=== PATIENT | male | born 1965 | race Caucasian/White ===

== ENCOUNTER 2024-06-03 03:48 | Emergency (ER) | payer OTHER, SELFPAY ==
--- NOTE | 2024-06-03 | ECG_ITS ---
Test Reason : FALL Blood Pressure : / mmHG Vent. Rate : 066 BPM Atrial Rate : 066 BPM P-R Int : 124 ms QRS Dur : 086 ms QT Int : 414 ms P-R-T Axes : 011 027 069 degrees QTc Int : 434 ms Normal sinus rhythm Normal ECG When compared with ECG of 28-SEP-2013 19:41, No significant change was found Referred By: Generic ED Physician Electronically Signed By:SHANIQUE VILLARREAL MD
--- NOTE | ~2024-06-03 | CT_ITS ---
EXAMINATION: CT HEAD WITHOUT CONTRAST CT CERVICAL SPINE WITHOUT CONTRAST CLINICAL INFORMATION: Fall. Pain. COMPARISON: None available. TECHNIQUE: Contiguous axial imaging was performed through the head and cervical spine without intravenous administration of contrast. Sagittal and coronal reformatted images also obtained. This CT examination was performed using dose optimization techniques as appropriate, variously including the following: *Automated exposure control *Adjustment of mA and/or kV according to patient size (this includes techniques or standardized protocols for targeted exams where dose is matched to indication/reason for exam; i.e. extremities or head) *Use of iterative reconstruction technique DLP: 1030 mGy-cm FINDINGS: There is mild cerebral volume loss with prominence of the lateral and the third ventricles. The cortical sulci are widened appropriately. The fourth ventricle and basal cisterns are normally outlined. There is mild bilateral periventricular and central white matter diminished attenuation. There is no acute territorial defect, hemorrhage or midline shift. The extra-axial spaces are unremarkable. Calvarium/scalp: Intact. Maxillofacial sinuses and mastoids: Clear as visualized. Cervical spine: There is mild reversal of the expected cervical spine curvature. There is diffuse pqfv-xq-rxelkbfo cervical disc degenerative change with loss of disc space, endplate change and posterior osteophytes associated with diffuse mild facet osteoarthritic hypertrophic change with multilevel daai-rg-jgzubleq spinal canal and neuroforaminal narrowing. The bone mineralization is normal. No fracture is seen. The soft tissues are unremarkable. CT/CT cervical spine wo IV con IMPRESSION: CT HEAD: 1. No acute intracranial process seen. 2. Mild cerebral volume loss with chronic small vessel ischemic changes. CT CERVICAL SPINE: 1. There is no acute fracture or dislocation. 2. There is mild reversal of the expected cervical spine curvature. 3. There is diffuse ayiu-mb-lubynlvk cervical spondylosis.
--- NOTE | ~2024-06-03 | CT_ITS ---
EXAMINATION: CT HEAD WITHOUT CONTRAST CT CERVICAL SPINE WITHOUT CONTRAST CLINICAL INFORMATION: Fall. Pain. COMPARISON: None available. TECHNIQUE: Contiguous axial imaging was performed through the head and cervical spine without intravenous administration of contrast. Sagittal and coronal reformatted images also obtained. This CT examination was performed using dose optimization techniques as appropriate, variously including the following: *Automated exposure control *Adjustment of mA and/or kV according to patient size (this includes techniques or standardized protocols for targeted exams where dose is matched to indication/reason for exam; i.e. extremities or head) *Use of iterative reconstruction technique DLP: 1030 mGy-cm FINDINGS: There is mild cerebral volume loss with prominence of the lateral and the third ventricles. The cortical sulci are widened appropriately. The fourth ventricle and basal cisterns are normally outlined. There is mild bilateral periventricular and central white matter diminished attenuation. There is no acute territorial defect, hemorrhage or midline shift. The extra-axial spaces are unremarkable. Calvarium/scalp: Intact. Maxillofacial sinuses and mastoids: Clear as visualized. Cervical spine: There is mild reversal of the expected cervical spine curvature. There is diffuse duql-vp-lccwnoxe cervical disc degenerative change with loss of disc space, endplate change and posterior osteophytes associated with diffuse mild facet osteoarthritic hypertrophic change with multilevel sylq-km-zvpwghhp spinal canal and neuroforaminal narrowing. The bone mineralization is normal. No fracture is seen. The soft tissues are unremarkable. CT/CT head/brain wo IV con IMPRESSION: CT HEAD: 1. No acute intracranial process seen. 2. Mild cerebral volume loss with chronic small vessel ischemic changes. CT CERVICAL SPINE: 1. There is no acute fracture or dislocation. 2. There is mild reversal of the expected cervical spine curvature. 3. There is diffuse gbmx-hm-gjinnlnv cervical spondylosis.
[2024-06-03 03:59] VITALS: BP 143/68; BP 146/78; PULSE 68; PULSE 75; RESP 14; TEMP 36.6; O2SAT 97; O2SAT 98; BMI 32.1
[2024-06-03 04:09] VITALS: BP 155/79; PULSE 76; RESP 16; O2SAT 97
[2024-06-03 04:24] LABS: Glucose, Whole Blood 448 mg/dL (60-115)
[2024-06-03 04:44] LABS: Hematocrit 34.3 % (42.0-52.0); Hemoglobin 12.3 g/dl (14.0-18.0); Mean Corpuscular HGB Conc 35.9 g/dl (31.0-36.0); Mean Corpuscular Hemoglobin 32.8 pg (27.0-33.0); Mean Corpuscular Volume 91.5 fL (80.0-98.0); Mean Platelet Volume 11.1 fL (9.4-12.4); Platelet Count 199 X10*3/uL (160-400); Red Blood Count 3.75 X10*6/uL (4.60-5.80); Red Cell Distribution Width 12.9 % (11.0-16.0); White Blood Count 6.4 X10*3/uL (4.8-10.8)
[2024-06-03 05:12] LABS: Alanine Aminotransferase 24 U/L (0-40); Alkaline Phosphatase 102 U/L (39-117); Anion Gap 16 (12-20); Aspartate Amino Transferase 20 U/L (5-37); Bilirubin Total 0.3 mg/dL (0.0-1.0); Blood Urea Nitrogen 33 mg/dL (9-16); Calcium 9.5 mg/dL (8.4-10.2); Carbon Dioxide 23 mmol/L (22-29); Chloride 105 mmol/L (96-108); Creatinine Clr Calc Pharmacy 42.4; Estimated Glomerular Filt Rate 35; Glucose Random 514 mg/dL (60-115); Magnesium 1.9 mg/dL (1.6-2.6); Sodium 140 mmol/L (135-145); Total Protein 7.4 g/dL (6.5-8.0)
[2024-06-03 06:00] VITALS: BP 150/70; PULSE 66; RESP 16; TEMP 37; O2SAT 94
--- NOTE | 2024-06-03 06:42 | ED_ITS ---
HPI - General Adult General Chief complaint: Fall Stated complaint: fall/BGL 435 Time Seen by Provider: 06/03/24 06:40 Source: patient and EMS Mode of arrival: EMS Limitations: no limitations History of Present Illness ED Provider: Maria Luz Bah PA-C HPI narrative: Patient is a 58 year old assigned male at with a history of DM presenting to the emergency department today with a forehead laceration. Patient states that he tripped and fell over a broom stick and hit his head. Patient denies any loss of consciousness with the incident. Patient denies any dizziness, lightheadedness, abdominal pain, nausea, vomiting, fever, chills, blurry vision, double vision, loss of vision, chest pain, difficulty breathing, shortness of breath, back pain, night sweats, pain with urination, increased urinary frequency, increased urinary urgency, blood in his urine or stool, syncope or a near syncopal episode, bowel incontinence, bladder incontinence, or any other complaints at this time. Location: head Severity: mild Relieving factors: none Exacerbating factors: none Associated symptoms: denies other symptoms Treatments prior to arrival: none Related Data Allergies Allergy/AdvReac Type Severity Reaction Status Date / Time cinacalcet [From SENSIPAR] Allergy Unknown SICK Verified 06/03/24 07:31 iodine [IODINE] Allergy Unknown HIVES Verified 06/03/24 07:31 Review of Systems 2 Constitutional: Constitutional: Reports no additional constitutional complaints, Denies chills, Denies fever(s) and Denies night sweats Eyes: Eyes: Reports no additional eye complaints, Denies blurry vision, Denies change in vision, Denies diplopia, Denies eye discharge, Denies loss of vision and Denies eye pain ENT: Denies dizziness Comments: forehead laceration Cardiovascular: Cardiovascular: Reports no additional cardiovascular complaints, Denies chest pain, Denies lightheadedness, Denies Loss of Consciousness and Denies dyspnea Respiratory: Respiratory: Reports no additional respiratory complaints and Denies dyspnea Gastrointestinal: Gastrointestinal: Reports no additional gastrointestinal complaints, Denies abdominal pain, Denies melena, Denies hematochezia, Denies change in bowel habits and Denies change in stool character Genitourinary: Genitourinary: Reports no additional male genitourinary complaints, Denies hematuria, Denies oliguria, Denies difficulty urinating, Denies dysuria, Denies urinary frequency, Denies urinary hesitancy, Denies urinary incontinence and Denies urinary urgency Musculoskeletal: Musculoskeletal: Reports no additional musculoskeletal complaints, Denies numbness and Denies tingling Neurologic: Denies dizziness, Denies loss of vision, Denies numbness and Denies tingling Psychiatric: Psychiatric: Reports no additional psychiatric complaints Endocrine: Endocrine: Reports no additional endocrine complaints Hematologic/Lymphatic: Hematologic/Lymphatic: Reports no additional hematologic/lymphatic complaints Allergic/Immunologic: Allergic/Immunologic: Reports no additional allergic/immunologic complaints [facility] Past Medical History Attestation statement: The following information was validated with the patient. Source: old records reviewed and nursing notes reviewed Social History Social History Use of substances other than those prescribed or required for medical reasons: No Advance Directives: No Advance Directives Information Provided: No Do you have a plan to hurt others: No Plan Physical Exam ED Vital Signs: Vital Signs - 24 hr 06/03/24 03:59 06/03/24 04:09 06/03/24 06:00 Temperature 97.8 F 98.6 F Pulse Rate 68 76 66 Respiratory Rate 14 16 16 Blood Pressure 143/68 H 155/79 H 150/70 H Pulse Oximetry 98 97 94 Oxygen Delivery Method Room Air Room Air Room Air 06/03/24 08:00 06/03/24 10:23 06/03/24 10:24 Temperature 98.2 F 98.1 F 98.1 F Pulse Rate 61 63 63 Respiratory Rate 13 15 15 Blood Pressure 156/74 H 149/80 H 149/80 H Pulse Oximetry 94 96 96 Oxygen Delivery Method Room Air Room Air Room Air BMI result Body Mass Index 32.1 Const General: cooperative, no acute distress, alert and awake Nutritional Appearance: well nourished Orientation/consciousness: patient oriented x3 Limitations: no limitations [facility] Head images: 2 1. superficial Y shaped laceration - no gaping, no active bleeding Ears: hearing grossly normal bilaterally and external ears normal General nose exam: Normal external nose present, no nasal discharge noted and no epistaxis Mouth: Normal oral and palatal mucosa present, no drooling and no muffled voice Eyes General: appearance normal, both eyes and all related structures Periorbital: periorbital findings normal Eyelids: Yes eyelids normal Conjunctivae: conjunctivae normal Pupils: Equal, round and reactive pupils present EOM: EOMs intact bilaterally Neck Neck: Yes normal visual inspection, Yes full ROM and Yes no lymphadenopathy Chest Chest palpation & inspection: normal inspection of the chest Resp Effort & Inspection: normal respiratory effort and able to speak in complete sentences GI Inspection: Yes normal to inspection Neuro General: patient oriented x3 and moves all extremities Cranial nerves: Yes Equal, round and reactive pupils present Cognition (Neuro): normal cognition Extrem General: Yes normal to inspection, Yes full ROM and Yes capillary refill normal Psych Appearance: grossly normal Mental Status: mental status grossly normal Affect: normal affect Attitude: cooperative Thought process: Normal thought process present Thought content: Normal thought content present Insight: Good insight present (Psych) Medications Administered Discontinued Medications Generic Name Dose Route Start Last Admin Trade Name Arun PRN Reason Stop Dose Admin Lactated Ringer's 1,000 mls @ 999 mls/hr 06/03/24 06:45 06/03/24 08:24 Lr IV 06/03/24 08:45 Infused .Q1H1M [facility] Infusion Procedures Laceration Laceration 1: Site: face Description: irregular Depth: simple, single layer Pre-repair: irrigated extensively and deep structures intact Skin layer closed with: other (dermabond) Size (cm): other (dermabond) Technique: other (dermabond) Medical Decision Making Medical Decision Making MDM Narrative: Patient is a 58 year old assigned male at with a history of DM presenting to the emergency department today with a forehead laceration. Patient's physical exam was as noted in the physical exam portion of this note. Patient's blood work showed an elevated blood sugar of 514, BUN of 33, CR of 1.97, and a beta- hydroxybutyrate of 0.10. Patient's EKG was unremarkable. Patient's CT head and c-spine showed no acute process. Patient was given 2 liters of LR and his CMP repeated. Repeat CMP showed improvement of BUN, CR, and blood sugar. Patient's clinical presentation is most consistent with chronic hyperglycemia and dehydrated, not acute DKA. Patient's forehead laceration was repaired with dermabond, without incident. I explained my physical exam findings as well as all test results to the patient. I answered all questions asked by the patient. I stressed the importance of the patient taking his medication as directed (either prescribed or as the over the counter packaging recommends). I stressed the importance of the patient following up with his primary care provider. I stressed the importance of the patient returning to the emergency department immediately if his symptoms were to worsen or if he were to develop any dizziness, shortness of breath, difficulty breathing, chest pain, blurry vision, loss of vision, nausea, vomiting, abdominal pain, fever, chills, back pain, or any other complaints. Patient verbalized agreement and understanding with this treatment plan and discharge. Differential Diagnosis Differential Diagnoses: The differential diagnosis associated with the presentation includes Dehydration Hyperglycemia Forehead laceration Admission/Observation Consideration of admission/observation: Escalation of care including admission/observation considered Patient would have been admitted to the hospital had his work up had any findings where hospital admission was appropriate and his clinical presentation warranted hospital admission. Lab Data [facility] Lab Attestation statement: I reviewed the patient's lab results. My interpretation of these results are in the [facility] Rationale portion of this note. 06/03/24 04:40 06/03/24 09:28 Labs: Lab Results 06/03/24 06/03/24 06/03/24 Range/Units 04:20 04:39 04:40 WBC 6.4 (4.8-10.8) X10*3/uL RBC 3.75 L (4.60-5.80) X10*6/uL Hgb 12.3 L (14.0-18.0) g/dl Hct 34.3 L (42.0-52.0) % MCV 91.5 (80.0-98.0) fL MCH 32.8 (27.0-33.0) pg MCHC 35.9 (31.0-36.0) g/dl RDW 12.9 (11.0-16.0) % Plt Count 199 (160-400) X10*3/uL MPV 11.1 (9.4-12.4) fL Absolute Nucleated RBC 0.000 (0.0-0.012) X10*3/uL Nucleated RBC % (auto) 0.0 (0.0-0.2) /100WBC Sodium 140 (135-145) mmol/L Potassium 4.0 (3.3-5.1) mmol/L Chloride 105 (96-108) mmol/L Carbon Dioxide 23 (22-29) mmol/L Anion Gap 16 (12-20) BUN 33 H (9-16) mg/dL Creatinine 1.97 H (0.5-1.4) mg/dL Estim Creat Clear Calc 42.4 Estimated GFR 35 POC Glucose 448 H* (60-115) mg/dL Random Glucose 514 H* (60-115) mg/dL Calcium 9.5 (8.4-10.2) mg/dL Magnesium 1.9 (1.6-2.6) mg/dL Total Bilirubin 0.3 (0.0-1.0) mg/dL AST 20 (5-37) U/L ALT 24 (0-40) U/L Alkaline Phosphatase 102 (39-117) U/L Total Protein 7.4 (6.5-8.0) g/dL Albumin 4.0 (3.5-5.0) g/dL Beta-Hydroxybutyrate 0.10 (0.02-0.27) mmol/L 06/03/24 06/03/24 Range/Units 07:14 09:28 WBC (4.8-10.8) X10*3/uL RBC (4.60-5.80) X10*6/uL Hgb (14.0-18.0) g/dl Hct (42.0-52.0) % MCV (80.0-98.0) fL MCH (27.0-33.0) pg MCHC (31.0-36.0) g/dl RDW (11.0-16.0) % Plt Count (160-400) X10*3/uL MPV (9.4-12.4) fL Absolute Nucleated RBC (0.0-0.012) X10*3/uL Nucleated RBC % (auto) (0.0-0.2) /100WBC Sodium 139 (135-145) mmol/L Potassium 4.4 (3.3-5.1) mmol/L Chloride 108 (96-108) mmol/L Carbon Dioxide 21 L (22-29) mmol/L Anion Gap 14 (12-20) BUN 29 H (9-16) mg/dL Creatinine 1.51 H (0.5-1.4) mg/dL Estim Creat Clear Calc 55.4 Estimated GFR 48 POC Glucose 454 H* (60-115) mg/dL Random Glucose 420 H* (60-115) mg/dL Calcium 9.1 (8.4-10.2) mg/dL Magnesium (1.6-2.6) mg/dL Total Bilirubin 0.3 (0.0-1.0) mg/dL AST 23 (5-37) U/L ALT 37 (0-40) U/L Alkaline Phosphatase 92 (39-117) U/L Total Protein 6.5 (6.5-8.0) g/dL Albumin 3.9 (3.5-5.0) g/dL Beta-Hydroxybutyrate (0.02-0.27) mmol/L Independent Interpretation I performed an independent interpretation of an: EKG and CT Scan Interpretation: My interpretation is in agreement with the radiologist's impression of these imaging studies. - EXAMINATION: CT HEAD WITHOUT CONTRAST CT CERVICAL SPINE WITHOUT CONTRAST CLINICAL INFORMATION: Fall. Pain. COMPARISON: None available. TECHNIQUE: Contiguous axial imaging was performed through the head and cervical spine without intravenous administration of contrast. Sagittal and coronal reformatted images also obtained. This CT examination was performed using dose optimization techniques as appropriate, variously including the following: *Automated exposure control *Adjustment of mA and/or kV according to patient size (this includes techniques or standardized protocols for targeted exams where dose is matched to indication/reason for exam; i.e. extremities or head) *Use of iterative reconstruction technique DLP: 1030 mGy-cm FINDINGS: There is mild cerebral volume loss with prominence of the lateral and the third ventricles. The cortical sulci are widened appropriately. The fourth ventricle and basal cisterns are normally outlined. There is mild bilateral periventricular and central white matter diminished attenuation. There is no acute territorial defect, hemorrhage or midline shift. The extra-axial spaces are unremarkable. Calvarium/scalp: Intact. Maxillofacial sinuses and mastoids: Clear as visualized. Cervical spine: There is mild reversal of the expected cervical spine curvature. There is diffuse gbzo-se-rtdcuccw cervical disc degenerative change with loss of disc space, endplate change and posterior osteophytes associated with diffuse mild facet osteoarthritic hypertrophic change with multilevel ubin-rd-tqoiesio spinal canal and neuroforaminal narrowing. The bone mineralization is normal. No fracture is seen. The soft tissues are unremarkable. CT/CT head/brain wo IV con IMPRESSION: CT HEAD: 1. No acute intracranial process seen. 2. Mild cerebral volume loss with chronic small vessel ischemic changes. CT CERVICAL SPINE: 1. There is no acute fracture or dislocation. 2. There is mild reversal of the expected cervical spine curvature. 3. There is diffuse jlyx-gq-vwjhfxwf cervical spondylosis. Dictated By: Tony Lewis MD Signed By: Electronically signed by Tony Lewis MD 06/03/24 0547 - Vent. Rate: 066 BPM Atrial Rate: 066 BPM P-R Int: 124 ms QRS Dur: 086 ms QT Int: 414 ms P-R-T Axes: 011 027 069 degrees QTc Int: 434 ms Normal sinus rhythm Normal ECG When compared with ECG of 28-SEP-2013 19:41, No significant change was found DD/ [id number] Radiology Impression Discussion of test interpretation with radiology: I have reviewed the radiologist's reading. Independent Historian Clinical information obtained from an independent historian. History obtained from or confirmed by: EMS (EMS provided additional history and confirmed the history provided by the patient.) Critical Care Time Critical Care Time Critical Care Time: Yes Total Critical Care Time: 48 Attestation: I spent 48 minutes of Critical Care Time with this patient. This does not include time spent on separately reported billable procedures. Discharge Plan Discharge Clinical Impression: Forehead laceration, Acute hyperglycemia, Acute dehydration Patient Disposition: Home, Self-Care Instructions: Dehydration (ED), Skin Adhesive Care (ED), Diabetic Hyperglycemia (ED) Additional Instructions: Do NOT get the repaired area on your forehead wet for at LEAST 7 days. Your blood sugar is still elevated however, you have no evidence of DKA. Make sure to increase your water intake. Follow up with your primary care provider. Return to the emergency department immediately if your symptoms worsen or if you develop any dizziness, shortness of breath, difficulty breathing, chest pain, blurry vision, loss of vision, nausea, vomiting, abdominal pain, fever, chills, back pain, or any other complaints. Referrals: [facility] [place] [facility] [Provider Group] (Call to establish and follow up with a primary care provider. If you already have a primary care provider, please follow up with them.) [facility] [place] Keerthi Ramos [Provider Group] [facility] [place] [facility] [Provider Group] Interventions: ED Discharge Assessment Last Done: 06/03/24 10:24 Discharge Date/Time: 06/03/24 10:28 Print Language: German
[2024-06-03] MEDS: Lactated Ringers 1,000 ML 999 ML IV ×2 (06:46→07:32)
[2024-06-03 07:26] LABS: Glucose, Whole Blood 454 mg/dL (60-115)
[2024-06-03 08:00] VITALS: BP 156/74; PULSE 61; RESP 13; TEMP 36.8; O2SAT 94
[2024-06-03 10:06] LABS: Alanine Aminotransferase 37 U/L (0-40); Albumin Level 3.9 g/dL (3.5-5.0); Alkaline Phosphatase 92 U/L (39-117); Anion Gap 14 (12-20); Aspartate Amino Transferase 23 U/L (5-37); Bilirubin Total 0.3 mg/dL (0.0-1.0); Blood Urea Nitrogen 29 mg/dL (9-16); Calcium 9.1 mg/dL (8.4-10.2); Carbon Dioxide 21 mmol/L (22-29); Chloride 108 mmol/L (96-108); Creatinine Clr Calc Pharmacy 55.4; Estimated Glomerular Filt Rate 48; Glucose Random 420 mg/dL (60-115); Potassium 4.4 mmol/L (3.3-5.1); Sodium 139 mmol/L (135-145); Total Protein 6.5 g/dL (6.5-8.0)
[2024-06-03 10:23] VITALS: BP 149/80; PULSE 63; RESP 15; TEMP 36.7; O2SAT 96
[2024-06-03 10:24] VITALS: BP 149/80; PULSE 63; RESP 15; TEMP 36.7; O2SAT 96
[2024-06-03 11:51] LABS: Appearance Urine Clear; Color Urine Yellow; Glucose Urine UA >=1000 mg/dL (Negative); Leukocyte Esterase Urine Negative (Negative); Nitrite Urine Negative (Negative); PH 6.5 (5.0-9.0); UMIC TRIGGER UACC YES; Urine Blood Negative (Negative); Urine Ketones Negative (Negative); Urine Protein Negative (Neg-Trace)
[2024-06-03 11:56] LABS: Bacteria Urine None Seen (None Seen); Hyaline Casts Urine 0-2 /LPF (0-2); RBC Urine 0-2 /HPF (0-2); Squamous Epithelial Cell Urine 0-2 /HPF (0-2); WBC Urine 0-5 /HPF (0-5)
== END 2024-06-03 10:28 | disposition home or self-care (01) ==
PROVIDERS: Physician Assistant Medical; Emergency Provider Emergency Medicine
DX: S01.81XA Laceration without foreign body of other part of head, initial encounter (principal); W01.0XXA Fall on same level from slipping, tripping and stumbling without subsequent striking against object, initial encounter; E11.65 Type 2 diabetes mellitus with hyperglycemia; E86.0 Dehydration; Y93.9 Activity, unspecified; Y92.9 Unspecified place or not applicable; Y99.9 Unspecified external cause status
CPT/HCPCS: 12011; 36415; 70450; 72125; 80053; 81001; 82010; 82947; 83735; 85027; 93005; 96360; 96361; 99284; 99285; J7120

== ENCOUNTER → 2024-06-03 04:57 | Outpatient (BNV) | payer OTHER, SELFPAY | PROVIDERS: Emergency Provider Emergency Medicine; Visit Provider Internal Medicine Cardiovascular Disease | DX: S01.91XA Laceration without foreign body of unspecified part of head, initial encounter (principal); W01.0XXA Fall on same level from slipping, tripping and stumbling without subsequent striking against object, initial encounter | CPT/HCPCS: 93010 ==

== ENCOUNTER 2025-08-29 22:09 | Emergency (ER) | payer OTHER, SELFPAY ==
--- NOTE | 2025-08-29 | ECG_ITS ---
Test Reason : CP Blood Pressure : */* mmHG Vent. Rate : 70 BPM Atrial Rate : 70 BPM P-R Int : 132 ms QRS Dur : 82 ms QT Int : 396 ms P-R-T Axes : 13 20 51 degrees QTcB Int : 427 ms Normal sinus rhythm Normal ECG When compared with ECG of 03-Jun-2024 04:57, No significant change was found Referred By: Generic ED Physician Electronically Signed By: Missael Melvin
[2025-08-29 22:17] VITALS: BP 124/53; PULSE 76; O2SAT 95
[2025-08-29 22:18] VITALS: BP 147/74; PULSE 74; RESP 16; TEMP 36.8; O2SAT 97; BMI 30.3
--- OUTSIDE RECORDS SUMMARY | 2025-08-29 22:31 | XMS_ITS | Data Portability ---
Author Organization [place] - [facility], Allergy Address [address] [address] Care Team Providers Care Branch Operations Manager Name Role Phone AASHISH MOSS Primary Care Provider [phone] Assessment Encounter Date Assessment Date Assessment LastModified by Organization Details LastModified Time 06/14/2024 06/14/2024 58-year-old male presents for cerumen removal. Cerumen removed bilaterally. TMs normal to inspection. Repeat hearing test at next visit. Follow-up in 6 months. [email or web address] Not available 06/14/2024 15:18:15 12/18/2024 12/18/2024 59-year-old male presents for cerumen removal. Cerumen removed bilaterally. TMs normal to inspection. Updated audiometric testing was obtained today. Audiometric testing today shows sensorineural hearing loss bilaterally which is fairly symmetrical compared to previous results. He needs a new pair of hearing aids and was provided medical clearance along with [facility] and a copy of his hearing test. Follow-up in 6 months for cerumen removal. gayathri Not available 12/18/2024 10:42:52 06/19/2025 06/19/2025 59 year old male presents for follow up cerumen. Cerumen removed bilaterally. TMs normal to inspection. Follow up in 1 year for repeat procedure. [email or web address] Not available 06/19/2025 13:16:26 Plan of Treatment Reminders Order Date Submit Date Provider Last Modified By Organization Details Last Modified Time Details Appointments Establish ed 15 2025 01:15P Melba BRINK PA-C Not available Not available Not available Lab None recorded. Referral None recorded. Procedures None recorded. Surgeries None recorded. Imaging None recorded. Medication Orders None recorded. Patient TargetsNo targets recorded. Patient InstructionsNo instructions recorded. Reason for Referral None Reported. Results Created Date Observation Date Name Description Value Unit Range Abnormal Flag Note LastModifiedBy Organization Detail LastModifiedTime 06/14/20 24 03/31/2023 imagi ng/di agnos tic resul t No observ ation record ed. [email or web address] Not Available 07:24:28 06/14/20 24 04/13/2022 imagi ng/di agnos tic resul t No observ ation record ed. [email or web address] Not Available 07:24:35 06/14/20 24 05/16/2019 imagi ng/di agnos tic resul t No observ ation record ed. [email or web address] Not Available 07:24:39 06/14/20 24 05/16/2019 imagi ng/di agnos tic resul t No observ ation record ed. [email or web address] Not Available 07:24:40 06/14/20 24 03/31/2023 audio gram No observ ation record ed. [email or web address] Not Available 07:24:55 06/14/20 24 04/13/2022 audio gram No observ ation record ed. [email or web address] Not Available 07:25:03 06/14/20 24 05/16/2019 audio gram No observ ation record ed. [email or web address] Not Available 07:25:08 12/18/19 25 audio gram No observ ation record ed. [email or web address] Not Available 2024 13:29:14 Result Notes None recorded. Problems Name Problem SNOMED Code Status Onset Date Resolution Date Notes Provider Name and Address Organization Details Recorded Time Heart murmur 95254425 Active 2014 Symptoms involving cardiovas cular system: Undiagnos ed cardiac murmurs; Note: Date Diagnosed : 01/08/2015 3:10 PM (785.2) Not Available [facility] 03:02:45 Dizziness and giddiness 264911229 Active 2014 Dizziness ; Note: Date Diagnosed : 01/08/2015 3:10 PM (780.4) Not Available [facility] 4 03:02:48 Asymmetri cheryl sensorine ural hearing loss 926679797 Active 2014 Sensorine ural HL, asymmetri c; Note: Date Diagnosed : 06/07/2015 11:51 AM (389.16) Not Available [facility] 4 03:02:47 Impacted cerumen 06565724 Active 2014 Impacted cerumen; CMS Risk: low risk CMS Treatment : new problem (to examiner) : no additiona l workup planned Not Available [facility] 4 03:02:46 Sensorine ural hearing loss 26251430 Active 2015 Sensorine ural hearing loss, unilatera l, right ear, with unrestric marii hearing on the contralat eral side; Note: Date Diagnosed : 06/22/2016 2:03 PM (H90.41) Not Available [facility] 4 03:02:46 Mixed conductiv e and sensorine ural hearing loss of left ear 22572677326 107 Active 2015 Mixed conductiv e and sensorine ural hearing loss, unilatera l, left ear, with unrestric marii hearing on the contralat eral side; Note: Date Diagnosed : 06/22/2016 2:02 PM (H90.72) Not Available [facility] 4 03:02:47 Impacted cerumen of bilateral ears 22426753577 13319 Active 2015 Impacted cerumen, bilateral ; Note: Date Diagnosed : 06/22/2016 12:11 PM (H61.23) Not Available [facility] 4 03:02:46 Headache 12673564 Active 2016 Headache; Note: Date Diagnosed : 01/29/2017 2:53 PM (R51) Not Available [facility] 4 03:02:47 Nasal congestio n 91341329 Active 2016 Nasal congestio n; Note: Date Diagnosed : 07/01/2017 11:58 AM (R09.81) Not Available [facility] 4 03:02:46 Sensorine ural hearing loss of bilateral ears 787751525 Active 2017 Sensorine ural hearing loss, bilateral ; Note: Date Diagnosed : 06/16/2018 10:43 AM (H90.3) Not Available [facility] 4 03:02:47 Impacted cerumen in right ear 18018506919 44219 Active 2021 Impacted cerumen, right ear; Note: Date Diagnosed : 04/13/2022 3:36 PM (H61.21) Not Available [facility] 4 03:02:45 Problem Notes None recorded. Procedures Surgical History Date Name Laterality Status Provider Name and Address Organization Details Recorded Time 5 Cerumen removal without microscope bilat completed JUSTIN BRINK PA-C [address] [place] [address],[address], [address], [facility] 06/19/2025 13:15:35 5 Cerumen removal without microscope bilat completed JUSTIN BRINK PA-C [address] [place] [address],[address], [address], [facility] 12/18/2024 10:43:20 5 Air & Speech Audio with Tymps - [id number], 58964 & 27823 completed Doc TAPIA [address] [facility],[address], [address], [facility] 12/18/2024 10:33:32 4 Cerumen removal without microscope bilat completed JUSTIN BRINK PA-C [address] [place] [address],[address], [address], [facility] 06/14/2024 15:17:56 Imaging Results None recorded. Procedure Notes None recorded. Medical Equipment None Reported. Medications Name Sig Start Date Stop Date Status Note LastModified by Organization Details LastModified Time vitamin d3 25 mcg (1000u) t active Not Available Not Available No t Available amoxicill in 500 mg capsule active Not Available Not Available Not Available atorvasta tin 40 mg tablet TAKE 1 TABLET BY MOUTH ONCE DAILY active Not Available Not Available No t Available valgancic lovir 450 mg tablet 03/31 completed Medicati on ID: [id number] B rand Name: valganci clovir S end Method: E-Prescr ibed Sub s Allowed: subs OK Medic ationGen ericName : valganci clovir Not Available Not Available Not Available divalproe x 250 mg tablet,de layed release TAKE 1 TABLET BY MOUTH TWICE DAILY IN THE MORNING AND EVENING *EMERGEN CY REFILL* 06/19 completed Not Available Not Available Not Available sulfameth oxazole 400 mg-trimet hoprim 80 mg tablet 03/31 completed Medicati on ID: [id number] B rand Name: sulfamet hoxazole -trimeth oprim Se nd Method: E-Prescr ibed Sub s Allowed: subs OK Medic ationGen ericName : sulfamet hoxazole -trimeth oprim Not Available Not Available Not Available FreeStyle Lancets 28 gauge USE DIRECTED NEEDED TO TEST BLOOD SUGAR 5 TIMES A DAY active Not Available Not Available No t Available gabapenti n 400 mg capsule 03/31 completed Medicati on ID: [id number] B rand Name: gabapent in Send Method: E-Prescr ibed Sub s Allowed: subs OK Medic ationGen ericName : gabapent in Not Available Not Available Not Available sertralin e 100 mg tablet TAKE TWO (2) TABLETS BY MOUTH EVERY DAY active Not Available Not Available No t Available alclometa sone 0.05 % topical cream 09/28 completed Medicati on ID: [id number] D uration Value: 30 Brand Name: alclomet asone Se nd Method: E-Prescr ibed Sub s Allowed: subs OK Medic ationGen ericName : alclomet asone Not Available Not Available Not Available amlodipin e 2.5 mg tablet 03/31 completed Medicati on ID: [id number] B rand Name: amlodipi ne Send Method: E-Prescr ibed Sub s Allowed: subs OK Medic ationGen ericName : amlodipi ne Not Available Not Available Not Available terazosin 1 mg capsule 03/31 completed Medicati on ID: [id number] B rand Name: terazosi n Send Method: E-Prescr ibed Sub s Allowed: subs OK Speci al Instruct ion: TAKE 1 CAPSULE BY MOUTH ONCE DAILY Me dication GenericN monica: terazosi n Not Available Not Available Not Available tramadol 50 mg tablet 09/28 completed Medicati on ID: [id number] D uration Value: 3 Brand Name: tramadol Send Method: E-Prescr ibed Sub s Allowed: subs OK Medic ationGen ericName : tramadol Not Available Not Available Not Available bupropion HCl SR 100 mg tablet,12 hr sustained -release TAKE 1 TABLET BY MOUTH IN THE MORNING. DO NOT CRUSH, CHEW OR SPLIT. active Not Available Not Available No t Available lidocaine -prilocai ne 2.5 %-2.5 % topical cream 09/28 completed Medicati on ID: [id number] D uration Value: 30 Brand Name: lidocain e-priloc elian Sen d Method: E-Prescr ibed Sub s Allowed: subs OK Speci al Instruct ion: APPLY 2-3 GRAM TO THE AFFECTED AREA(S) 3-4 TIMES DAILY Me dication GenericN monica: lidocain e-priloc elian Not Available Not Available Not Available terazosin 2 mg capsule 06/19 completed Medicati on ID: [id number] B rand Name: terazosi n Send Method: E-Prescr ibed Sub s Allowed: subs OK Speci al Instruct ion: TAKE 1 CAPSULE BY MOUTH EVERY NIGHT *DOSE INCREASE * Medica tionGene ricName: terazosi n Not Available Not Available Not Available tamsulosi n 0.4 mg capsule TAKE 1 CAPSULE BY MOUTH IN THE EVENING active Not Available Not Available No t Available amlodipin e 10 mg tablet active Not Available Not Available Not Available calcipotr iene 0.005 % topical cream 09/28 completed Medicati on ID: [id number] D uration Value: 30 Brand Name: calcipot riene Se nd Method: E-Prescr ibed Sub s Allowed: subs OK Medic ationGen ericName : calcipot riene Not Available Not Available Not Available lidocaine 5 % topical patch active Not Available Not Available Not Available docusate sodium 100 mg capsule TAKE ONE (1) CAPSULE BY MOUTH TWICE DAILY active Not Available Not Available No t Available lisinopri l 5 mg tablet 03/31 completed Medicati on ID: [id number] B rand Name: lisinopr il Send Method: E-Prescr ibed Sub s Allowed: subs OK Speci al Instruct ion: TAKE 1 TABLET BY MOUTH ONCE DAILY Me dication GenericN monica: lisinopr il Not Available Not Available Not Available gabapenti n 100 mg capsule 09/28 completed Medicati on ID: [id number] D uration Value: 30 Brand Name: gabapent in Send Method: E-Prescr ibed Sub s Allowed: subs OK Medic ationGen ericName : gabapent in Not Available Not Available Not Available Novolog U-100 Insulin aspart 100 unit/mL subcutane ous solution 09/28 completed Medicati on ID: [id number] D uration Value: 39 Brand Name: Novolog U-100 Insulin aspart S end Method: E-Prescr ibed Sub s Allowed: subs OK Medic ationGen ericName : Novolog U-100 Insulin aspart Not Available Not Available Not Available polyethyl ashok glycol 3350 17 gram/dose oral powder MIX 17 GM (1 CAPFUL) IN 8 OUNCES WATER OR JUICE AND DRINK ONCE DAILY DIRECTED 06/19 completed Not Available Not Available Not Available sodium polystyre ne sulfonate 15 gram oral powder 03/31 completed Medicati on ID: [id number] B rand Name: sodium polystyr ashok sulfonat e Send Method: E-Prescr ibed Sub s Allowed: subs OK Speci al Instruct ion: TAKE 15G BY MOUTH THREE TIMES WEEKLY ON WEDNESDAY, , AND WEDNESDAY IN THE EVENING Medicati onGeneri cName: sodium polystyr ashok sulfonat e Not Available Not Available Not Available fluticaso ne propionat e 50 mcg/actua tion nasal spray,rika pension active Not Available Not Available Not Available tacrolimu s 1 mg capsule, immediate -release 09/28 completed Medicati on ID: [id number] D uration Value: 90 Brand Name: tacrolim us Send Method: E-Prescr ibed Sub s Allowed: subs OK Medic ationGen ericName : tacrolim us Not Available Not Available Not Available amoxicill in 875 mg-potass ium clavulana te 125 mg tablet TAKE 1 TABLET BY MOUTH EVERY 8 HOURS FOR 14 DAYS 06/19 completed Not Available Not Available Not Available tadalafil 10 mg tablet TAKE 1 TABLET BY MOUTH 1 HOUR BEFORE SEXUAL ACTIVITY active Not Available Not Available No t Available Alcohol Prep Pads 09/28 completed Medicati on ID: [id number] D uration Value: 90 Brand Name: Alcohol Prep Pads Sen d Method: E-Prescr ibed Sub s Allowed: subs OK Medic ationGen ericName : Alcohol Prep Pads Not Available Not Available Not Available mycopheno late sodium 180 mg tablet,de layed release active Not Available Not Available Not Available cholecalc iferol (vitamin D3) 25 mcg (1,000 unit) tablet TAKE 1 TABLET BY MOUTH ONCE DAILY active Not Available Not Available No t Available peg 3350-elec trolytes 236 gram-22.7 4 gram-6.74 gram-5.86 gram solution TAKE DIRECTED PER INSTRUCT IONS FROM GI 06/19 completed Not Available Not Available Not Available FreeStyle Lite Strips USE TO TEST BLOOD SUGAR 5 TIMES DAILY active Not Available Not Available No t Available Lantus Solostar U-100 Insulin 100 unit/mL (3 mL) subcutane ous pen INJECT 45 UNITS SUBCUTAN EOUSLY ONCE DAILY active Not Available Not Available No t Available Humalog KwikPen (U-100) Insulin 100 unit/mL subcutane ous active Not Available Not Available Not Available silodosin 8 mg capsule TAKE 1 CAPSULE BY MOUTH AT BEDTIME active Not Available Not Available No t Available Easy Talk Blood Glucose Meter active Medicati on ID: [id number] B rand Name: Easy Talk Blood Glucose Meter Se nd Method: E-Prescr ibed Sub s Allowed: subs OK Medic ationGen ericName : Easy Talk Blood Glucose Meter Not Available Not Available Not Available Tradjenta 5 mg tablet 09/28 completed Medicati on ID: [id number] D uration Value: 30 Brand Name: Tradjent a Send Method: E-Prescr ibed Sub s Allowed: subs OK Medic ationGen ericName : Tradjent a Not Available Not Available Not Available Comfort EZ Pen [place] 31 gauge x 3/16 active Medicati on ID: [id number] B rand Name: Comfort EZ Pen [place] Send Method: E-Prescr ibed Sub s Allowed: subs OK Medic ationGen ericName : Comfort EZ Pen [place] Not Available Not Available Not Available V-GO 40 device 09/28 completed Medicati on ID: [id number] D uration Value: 30 Brand Name: V-GO 40 Send Method: E-Prescr ibed Sub s Allowed: subs OK Medic ationGen ericName : V-GO 40 Not Available Not Available Not Available Combivent Respimat 20 mcg-100 mcg/actua tion solution for inhalatio n INHALE 1 PUFF BY MOUTH FOUR TIMES A DAY NEEDED FOR SHORTNES S OF BREATH/W HEEZING active Not Available Not Available No t Available lancets 30 gauge 09/28 completed Medicati on ID: [id number] D uration Value: 90 Brand Name: lancets Send Method: E-Prescr ibed Sub s Allowed: subs OK Medic ationGen ericName : lancets Not Available Not Available Not Available Trulicity 1.5 mg/0.5 mL subcutane ous pen injector 03/31 completed Medicati on ID: [id number] B rand Name: Trulicit y Send Method: E-Prescr ibed Sub s Allowed: subs OK Medic ationGen ericName : Trulicit y Not Available Not Available Not Available Trulicity 0.75 mg/0.5 mL subcutane ous pen injector 03/31 completed Medicati on ID: [id number] B rand Name: Trulicit y Send Method: E-Prescr ibed Sub s Allowed: subs OK Medic ationGen ericName : Trulicit y Not Available Not Available Not Available Envarsus XR 1 mg tablet,ex tended release TAKE 1 TABLET BY MOUTH ONCE DAILY *TAKE ALONG WITH 4MG TABLET FOR A TOTAL DOSE OF 5MG* 06/19 completed Not Available Not Available Not Available Envarsus XR 4 mg tablet,ex tended release TAKE 1 TABLET BY MOUTH ONCE DAILY ALONG WITH 1MG TABLET FOR A TOTAL DOSE OF 5MG 06/19 completed Not Available Not Available Not Available Readi-Cat 2 2 % (w/v) oral suspensio n 09/28 completed Medicati on ID: [id number] D uration Value: 1 Brand Name: Readi-Ca t 2 Send Method: E-Prescr ibed Sub s Allowed: subs OK Medic ationGen ericName : Readi-Ca t 2 Not Available Not Available Not Available Novolin 70-30 FlexPen U-100 Insulin 100 unit/mL (70-30) subcutane ous 03/31 completed Medicati on ID: [id number] B rand Name: Novolin 70-30 FlexPen U-100 Se nd Method: E-Prescr ibed Sub s Allowed: subs OK Medic ationGen ericName : Novolin 70-30 FlexPen U-100 Not Available Not Available Not Available Gvoke HypoPen 1-Pack 1 mg/0.2 mL subcutane ous auto-inje ctor active Not Available Not Available Not Available Trulicity 3 mg/0.5 mL subcutane ous pen injector 03/31 completed Medicati on ID: [id number] B rand Name: Trulicit y Send Method: E-Prescr ibed Sub s Allowed: subs OK Medic ationGen ericName : Trulicit y Not Available Not Available Not Available Trulicity 4.5 mg/0.5 mL subcutane ous pen injector INJECT 0.5MLS SUBCUTAN EOUSLY ONCE PER WEEK active Not Available Not Available No t Available Easy Talk Plus II Low Control solution active Medicati on ID: [id number] B rand Name: Easy Talk Plus II Low Control Send Method: E-Prescr ibed Sub s Allowed: subs OK Medic ationGen ericName : Easy Talk Plus II Low Control Not Available Not Available Not Available FreeStyle Cassie 3 Sensor device active Not Available Not Available Not Available FreeStyle Cassie 3 [place] active Not Available Not Available Not Available Ultra-Fin e Pen Needle 31 gauge x 5/16 USE DIRECTED WITH LANTUS ONCE DAILY active Not Available Not Available No t Available Vitals Date Recorded Body height Body mass index (BMI) Body weight Provider Name and Address Organization Details Last Updated DateTime 12/18/2024 170.18 cm 28.2 kg/m2 93011.63 g Luana Gallegos [place] - [facility] 12/18/2024 10:13:43 Date Recorded Body height Body mass index (BMI) Body weight Provider Name and Address Organization Details Last Updated DateTime 06/14/2024 170.18 cm 28.2 kg/m2 71908.63 g Jed Case [place] - [facility] 06/14/2024 14:52:00 Date Recorded Body height Provider Name an d Address Organization Details Last Updated DateTime 06/19/2025 170.18 cm KIMBERLY JULIO ACOSTA - [facility] 06/19/2025 12:57:03 Social History None recorded. Functional Status None recorded. Mental Status None recorded. Family History Nothing Reported. Medical History No medical history recorded. Past Encounters Encounter ID Performer Location Encounter Start Date Encounter Closed Date Diagnosis/Indication Diagnosis SNOMED-CT Code Diagnosis ICD10 Code Diagnosis IMO Codes Diagnosis Note [id number] JUSTIN BRINK PA-C [facility] [address] [address] 06/14/2024 14:41:42 06/14/2024 15:15:39 Asymmetrical sensorineural hearing loss 972419589 H90.5 Impacted c erumen of bilateral ears 7731410796 357509 H61.23 [id number] JUSTIN BRINK PA-C [facility] [address] [address] 12/18/2024 09:35:52 12/18/2024 10:45:36 Sensorineural hearing loss of bilateral ears 729383647 H90.3 Audiologic al evaluation results: Right ear: Mild sloping to severe sensorineu ral hearing loss with good word recognitio n. Left ear: Mild sloping to severe sensorineu ral hearing loss with fair word recognitio n. Tympanomet ry: Right Ear:Type A Left Ear:Type A Impacted c erumen of bilateral ears 4046072051 047714 H61.23 [id number] JUSTIN BRINK PA-C [facility] [address] [address] 06/19/2025 12:53:22 06/19/2025 13:16:39 Impacted cerumen of bilateral ears 1788529146 961207 H61.23 Health Concerns Section Related Observation LastModified by Organization Detai ls LastModified Time None Recorded Concern Status LastModified by Organization Details LastModified Time None Recorded Advance Directives Directive None Recorded Payers Insurance Date Sequence Insurance Name Policy Number Policy Tejada Covered Member ID Tejada Member ID Guarantor Name 07/16/2025 1 [facility] - DOS ON OR AFTER 2023 - MEDICARE [place]VANTAGE [place]MEDICARE REPLACEMENT/ADV ANTAGE - PPO) Robert Dorsey [id number] Robert Guerinnolvia Notes Date Note Type Note Provider Name and Address Organization Details Recorded Time 06/14/2024 text/html ROS as noted in the [facility] 58-year-old male presents for cerumen removal. Has history of asymmetric hearing loss which we monitor with yearly hearing test. BIB MCKEON MD [address] [place] [address],[address], [address], [place] - [facility] 06/14/2024 15:59:20 12/18/2024 text/html ROS as noted in the [facility] 59-year-old male presents for cerumen removal. He would also like updated audiometric testing. History of asymmetric hearing loss. BIB MCKEON MD [address] [place] [address],[place] [address], [place], [address], [place] - [facility] 12/18/2024 12:16:12 06/19/2025 text/html ROS as noted in the [facility] 59 year old male presents for cerumen removal. No acute issues since his last visit. JOSEY CORBIN MD [address] [place] [address],[address], [address], [place] - [facility] 06/20/2025 09:37:31
--- OUTSIDE RECORDS SUMMARY | 2025-08-29 22:31 | XMS_ITS | Encounter Summary ---
Author Organization [facility] Address [address] [place] [address] Phone Care Team Providers Care Shingles Roofer Name Role Phone Walt Shah MD Primary Care Provider [phone] Reason for Visit * Reason Comments Med Refill Encounter Details Date Type Department Care Team (Late st Contact Info) Description 02/23/2024 Refill [facility] [address] [place] [phone] Chad Holden MD [address] [place] [address], [facility] [address] [place] [address] Social History Tobacco Use Types Packs/Day Years Used Date Smoking Tobacco: Former Smokeless Tobacco: Never Comments:not currently Alcohol Use Standard Drinks/Week Comments Not Currently 0 (1 standard drink = 0.6 oz pure alcohol) Alcoholic Drinks/day: Occasional social drink Sex and Gender Information Value Date Recorded Sex Assigned at Not on file Legal Sex Male 5:14 PM EST Gender Identity Not on file Sexual Orientation Not on file documented as of this encounter Plan of Treatment Upcoming Encounters Date Type Department Care Team (Late st Contact Info) Description 09/11/2025 10:45 AM EST Office Visit [facility] [address] [facility] [address] [place] [address] Donald Whitlock MD [address] [facility] [address] [place] [address] documented as of this encounter Visit Diagnoses Not on filedocumented in this encounter Care Teams Shingles Roofer Relationship Specialty Start Date End Date Walt Shah MD [address] [place] PCP - General 11/04/20 documented as of this encounter
--- OUTSIDE RECORDS SUMMARY | 2025-08-29 22:31 | XMS_ITS ---
Author Name [facility] Organization Unknown Problems Problem Status Onset Date Problem Type Date of Resoluti on Source Complication of transplanted kidney, unspecified complication active EncounterDiagnosisAct [facility] Encounters Encounter Type Encounter Reason Primary Diagnosis Location Date Ambulatory Unspecified complication of kidney transplant Unspecified complication of kidney transplant [facility] 11/25/2023 Ambulatory Unspecified complication of kidney transplant Unspecified complication of kidney transplant [facility] 08/05/2023 Ambulatory Kidney transplan t status [facility] 12/18/2022 Ambulatory Unspecified complication of kidney transplant [facility] 10/05/2022 Ambulatory Unspecified complication of kidney transplant [facility] 07/27/2022 Ambulatory Unspecified complication of kidney transplant [facility] 05/07/2022 Care Team Organization Name Specialty Phone Email Start Date End Da te [facility] EZEQUIEL LINDSEY Primary Care 08/05/2023 [facility] PCP,No Primary Care 07/27/2022 01/10/2025 [facility] NO PCP Primary Care 04/08/2022 09/22/2022 [facility] EZEQUIEL LINDSEY Primary Care
--- OUTSIDE RECORDS SUMMARY | 2025-08-29 22:31 | XMS_ITS | Clinical Summary ---
Author Organization [facility] it Address [address] [place] [address] Care Team Providers Care Diesel Mechanic Construction Name Role Phone Carl Ball MD Primary Care Provider Unavaila ble Immunizations Immunization Administration Dates Next Due Moderna SARS-CoV-2 COVID-19, mRNA, LNP-S, preservative free 03/06/2021,02/04/2021 Surgical History Surgery Date Site/Laterality Comments OTHER SURGICAL HISTORY PROCEDURE: HISTORY OTHER; COMMENT: FISTULA LEFT ARM TONSILLECTOMY PROCEDURE: HISTORICAL TONSILLECTOMY OTHER SURGICAL HISTORY PROCEDURE: HISTORY OTHER; COMMENT: LEFT EAR SURGERY COLONOSCOPY PROCEDURE: HISTORICAL COLONOSCOPY; COMMENT: 2010 CATARACT EXTRACTION PROCEDURE: HISTORICAL CATARACT REMOVAL; COMMENT: bilat 2011 PARATHYROIDECTOMY PROCEDURE: HISTORICAL PARATHYROIDECTOMY; COMMENT: 2012 NEPHRECTOMY PROCEDURE:NEPHRECTOMY TRANSPLANTED ORGAN PARATHYROIDECTOMY PROCEDURE:PARATHYROIDECTOMY Medical History Medical History Date Comments Unspecified disorder of kidn ey and ureter DX:Unspecified disorder of k idney and ureter Tobacco use disorder DX:Tobacco use disorder Unspecified hearing loss 11/12/2006 DX:Unsp ecified hearing loss Mixed hyperlipidemia 11/12/2006 DX:Mixed hy perlipidemia ESRD (end stage renal diseas e) on dialysis ([facility] V24, [facility] V28) 09/04/2010 DX:ESRD (end stage renal disease) on dialysis (HCC) Unspecified essential hypertension 09/04/2010 DX:Unspecified essential hypertension Tobacco abuse 09/04/2010 DX:Tobacco abuse Dysplastic nevus 11/28/2010 DX:Dysplastic n evus Personal history of colonic polyps 09/07/2011 DX:Personal history of colonic polyps BPH (benign prostatic hyperplasia) 11/22/2012 DX:BPH (benign prostatic hyperplasia) Kidney transplanted 03/19/2015 DX:Kidney tr ansplanted Diabetes ([facility] V24, [facility] V28) DX:Diabetes (HCC) Hypertension DX:Hypertension Renal disorder DX:Renal disorde r Diabetes mellitus ([facility] V 24, [facility] V28) DX:Diabetes mellitus (HCC) Measles DX:Measles Mumps DX:Mumps Gait disorder DX:Gait disorder Sleep apnea DX:Sleep apnea Basal cell carcinoma (BCC) of cheek DX:Basal cell carcinoma (BCC) of cheek Family History Medical History Relation Name Comments Glaucoma Brother Liver disease Brother Diabetes Mother Hyperthyroidism Mother Other: heart attack Mother Other: ulcers Mother Relation Name Status Comments Brother Alive several 1/2 sib s Father Alive ? Mother Alive asthma mi dm Social History Tobacco Use Types Packs/Day Years Used Date Smoking Tobacco: Never Cigarettes Qu it: 02/08/2012 Smokeless Tobacco: Never Alcohol Use Standard Drinks/Week Comments No 0 (1 standard drink = 0.6 oz pur e alcohol) Sex and Gender Information Value Date Recorded Sex Assigned at Not on file Legal Sex Male 4:21 PM EST Gender Identity Not on file Sexual Orientation Not on file Obstetrics History Plan of Treatment Health Maintenance Due Date Last Done Comments Pneumococcal Vaccine: 50+ Years (1 of 1 - PCV) 2014 Zoster Vaccines (1 of 2) 2014 DTaP,Tdap,and Td Vaccines (2 - Td or Tdap) 11/12/2016 11/12/2006 Depression Screening 10/25/2024 COVID-19 Vaccine (3 - 2024-2 6 season) 2025 03/06/2021, 02/04/2021 Influenza Vaccine (#1) 2025 2, 09/04/2010, 09/25/2005 RSV Immunization Adult Patients (1 - 1-dose 75+ series) 2039 HIB Vaccines Aged Out No longer eligi ble based on patient's age to complete this topic HPV Vaccines Aged Out No longer eligi ble based on patient's age to complete this topic Hepatitis A Vaccines Aged Out No long er eligible based on patient's age to complete this topic Hepatitis B Vaccines Aged Out No long er eligible based on patient's age to complete this topic IPV Vaccines Aged Out No longer eligi ble based on patient's age to complete this topic MMR Vaccines Aged Out No longer eligi ble based on patient's age to complete this topic Meningococcal ACWY Vaccine Aged Out N o longer eligible based on patient's age to complete this topic Meningococcal B Vaccine Aged Out No l onger eligible based on patient's age to complete this topic RSV Immunization Patients Under 20 months Aged Out No longer eligible b ased on patient's age to complete this topic Varicella Vaccines Aged Out No longer eligible based on patient's age to complete this topic Advance Directives Documents on File Type Date Recorded Patient Director Of Psychiatry Expl anation Health Care Decision (hx) 04/14/2021 JB SOLANO DIRECTIVE Care Teams [employer]el [employer] Relationship Specialty Start Date End Date Carl Ball MD PCP - General 07/25/1998
--- OUTSIDE RECORDS SUMMARY | 2025-08-29 22:31 | XMS_ITS | Clinical Summary ---
Author Organization [facility] Address [address] [place] [address] Care Team Providers Care Head Of Commission Department Name Role Phone Walt Shah MD Primary Care Provider [phone] Social History Tobacco Use Types Packs/Day Years Used Date Smoking Tobacco: Never Assessed Sex and Gender Information Value Date Recorded Sex Assigned at Male 11/23/2023 3:37 PM EST Legal Sex Male 4:22 PM EDT Gender Identity Male 11/23/2023 3:37 PM EST Sexual Orientation Heterosexual (straight) 11/23 3:37 PM EST Plan of Treatment Health Maintenance Due Date Last Done Comments Hepatitis C Virus Screening 1964 HIV Screening 1977 DTaP/Tdap/Td Vaccines (1 - Tdap) 1983 Colonoscopy 2009 Pneumococcal Vaccines 50+ (1 of 1 - PCV) 2014 RSV Vaccine 50 years and older and Patients (1 - Risk 50-74 years 1-dose series) 2014 Zoster (Shingles) Vaccine (1 of 2) 2014 Influenza Vaccine 05/25/2025 08/30/2023, , 11/05/2022, Additional history exists COVID-19 Vaccine ( season) 2025 12/14/2021, 03/06/2021, 02/04/2021 Hepatitis B Vaccines Aged Out No long er eligible based on patient's age to complete this topic Insurance [facility] MEDICARE OUT OF NETWORK Care Teams Head Of Commission Department Relationship Specialty Start Date End Date Walt Shah MD [address] [place] [address] [place] [id number] PCP - General Internal Medicine 11/19/22
--- OUTSIDE RECORDS SUMMARY | 2025-08-29 22:31 | XMS_ITS | Clinical Summary ---
Author Organization [facility] Address [address] [place] [address] Phone Care Team Providers Care Stores Clerk Name Role Phone Walt Shah MD Primary Care Provider [phone] Allergies Active Allergy Reactions Criticality Noted Date Comments Adhesive Tape Other (see comments),Rash Low 021 SKIN TEARS Cinacalcet Other (see comments) 02/10/2021 Iodine Other (see comments) 02/10/2021 Iothalamate Other (see comments) 10/25/2010 Medications albuterol HFA (PROVENTIL HFA;VENTOLIN HFA) 108 (90 Base) MCG/ACT inhaler Inhale 2 puffs 1 (one) time each day Active Combivent Respimat 20-100 MCG/ACT inhaler 1 Active Unifine Pentips 31G X 8 MM misc 1 Active amoxicillin (AMOXIL) 500 MG capsule 1 Active insulin glargine (Lantus SoloStar) 100 UNIT/ML injection Inject 45 Units under the skin 1 Active Lancets (freestyle) lancets See Instructions, # 200 each, Refills 11, Tot. Refills 11, Maintenance, use to check BG 5 times a day., 02/07/19 14:30:23 EDT, Compound 9 Active Trulicity 0.75 MG/0.5ML solution pen-injector INJECT 0.5ML SUBCUTANEOUSLY (UNDER THE SKIN) EVERY WEEK 2 mL 9 2 Active sertraline (ZOLOFT) 100 MG tablet TAKE 2 TABLETS BY MOUTH ONCE DAILY 44 tablet 10 2 Active Blood Pressure Monitoring (Blood Pressure Monitor Automat) deviceIndicati ons:Hypertensi on One automatic blood pressure monitor 1 each 2 Active Lancets (freestyle) lancets USE TO CHECK BLOOD GLUCOSE 5 TIMES A DAY. 200 each 2 Active terazosin (HYTRIN) 2 MG capsule Take 1 capsule (2 mg total) by mouth every night 30 capsule 11 3 Active Lancets (freestyle) lancets USE DIRECTED NEEDED TO TEST BLOOD SUGAR FIVE TIMES A DAY 100 each 10 3 Active Lancets (freestyle) lancets USE DIRECTED NEEDED TO TEST BLOOD SUGAR FIVE TIMES A DAY 100 each 10 3 Active Lancets (freestyle) lancets USE DIRECTED NEEDED TO TEST BLOOD SUGAR FIVE TIMES A DAY 100 each 10 3 Active Lancets (freestyle) lancets USE DIRECTED NEEDED TO TEST BLOOD SUGAR FIVE TIMES A DAY 100 each 10 3 Active Lancets (freestyle) lancets USE DIRECTED NEEDED TO TEST BLOOD SUGAR FIVE TIMES A DAY 100 each 3 Active Lancets (freestyle) lancets USE DIRECTED NEEDED TO TEST BLOOD SUGAR FIVE TIMES A DAY 100 each 3 Active FREESTYLE LITE test stripIndicatio ns:Diabetic on insulin (HCC) USE TO TEST BLOOD GLUCOSE 5 TIMES A DAY 200 each 3 Active divalproex (DEPAKOTE) 250 MG EC tablet TAKE ONE (1) TABLET BY MOUTH TWICE DAILY IN THE MORNING AND EVENING 60 tablet 10 3 Active polyethylene glycol (GLYCOLAX) 17 GM/SCOOP powder 17 g 4 Active amLODIPine (NORVASC) 10 MG tablet Take 1 tablet (10 mg total) by mouth 1 (one) time each day 90 tablet 3 4 Active cholecalcifero l (VITAMIN D-3) 25 MCG (1000 UT) tablet Take 1 tablet (1,000 Units total) by mouth 1 (one) time each day 30 tablet 10 4 Active buPROPion SR (WELLBUTRIN SR) 100 MG 12 hr tablet Take 1 tablet (100 mg total) by mouth in the morning. Do not crush, chew, or split.. 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 60 capsule 10 4 Active mycophenolate (MYFORTIC) 180 MG EC tablet TAKE 3 TABLETS BY MOUTH TWO TIMES A DAY 180 tablet 10 5 Active HumaLOG KWIKPEN 100 UNIT/ML solution pen-injector 4 Active atorvastatin (LIPITOR) 40 MG tablet TAKE 1 TABLET BY MOUTH ONCE DAILY 30 tablet 11 5 Active Silodosin 8 MG capsule TAKE 1 CAPSULE BY MOUTH AT BEDTIME 30 capsule 11 5 Active Active Problems Problem Noted Date Diagnosed Date Right upper quadrant pain 06/25/20232022 Kidney transplant rejection 07/30/2022 Diabetic on insulin 12/17/2021 Hyperlipidemia 12/17/2021 Anxiety 02/10/2021 Harmful pattern of substance use 02/10/2021 Diabetes mellitus 02/10/2021 Diverticulitis 02/10/2021 Hypertensive renal disease 02/10/2021 Kidney replaced by transplant 02/10/2021 Long-term drug therapy 02/10/2021 Hypertension 08/23/2014 Hyperparathyroidism due to renal insufficiency 0 07/10/2014 Resolved Problems Problem Noted Date Diagnosed Date Resolved Date Hypersomnia with sleep apnea 12/17/2021 07/29/2022 Patient care statuses 12/17/20212021 Severe major depression 12/17/202102/2022 Orthostatic hypotension 04/09/202103/2022 Acute nontraumatic kidney injury 04/09/2021 07/30/2022 Acute nontraumatic kidney injury 04/09/2021 07/30/2022 Benign prostatic hyperplasia 02/10/2021 07/29/2022 Stage 3a chronic kidney disease 02/10/2021 07/30/2022 Depressive disorder 02/10/2021 07/29/20 Inguinal pain 02/10/2021 07/29/2022 Multiple nodules of lung 02/10/202102/2022 Sleep apnea 02/10/2021 07/29/2022 End stage renal disease 12/23/2014 03/0 05/2022 Encounters Date Type Department Care Team Description 08/24/2025 Refill [facility] [address] [phone] [place] 06/18/2025 11:00 AM EDT Office Visit [facility] [address] [phone] Donald Whitlock MD Kidney replaced by transplant (Primary Dx) from Last 3 Months Immunizations Immunization Administration Dates Next Due Hep B, Unspecified 12/28/2008 Influenza (IM) Preservative Free 023,11/05/2022,07/27/2020,07/27,09/04/2010,09/25/2005 Influenza Split High Dose Pr eservative Free IM 08/25/2018 Influenza, Quadrivalent, Pre servative Free 08/13/2021 Influenza, Quadrivalent, Wit h Preservative 08/27/2016 Influenza, Unspecified 11/05/2022 Moderna SARS-COV-2 12/14/2021,03/06/2021, 021 Pneumococcal Conjugate 11/05/2022 Pneumococcal Polysaccharide 02/05/2012, 1,10/03/2009 Td, Unspecified 11/05/2022,11/12/2006 Tdap 08/07/2014 Family History Medical History Relation Comments Diabetes Father Heart disease Father Hypertension Father Kidney disease Father Stroke Father Diabetes Mother Heart disease Mother Hypertension Mother Diabetes Sibling brother/ sister Relation Status Comments Father Mother Alive Sibling Social History Tobacco Use Types Packs/Day Years Used Date Smoking Tobacco: Former Smokeless Tobacco: Never Tobacco Cessation:Counseling Given: Not Answered Comments:not currently Alcohol Use Standard Drinks/Week Comments Not Currently 0 (1 standard drink = 0.6 oz pure alcohol) Alcoholic Drinks/day: Occasional social drink Sex and Gender Information Value Date Recorded Sex Assigned at Not on file Legal Sex Male 5:14 PM EST Gender Identity Not on file Sexual Orientation Not on file Last Filed Vital Signs Vital Sign Reading Time Taken Comments Blood Pressure 142/64 06/18/2025 11:11 AM EDT Pulse 66 06/18/2025 11:11 AM EDT Temperature - - Respiratory Rate 20 01/12/2024 1:35 PM EDT Oxygen Saturation 98% 06/18/2025 11:11 AM EDT Inhaled Oxygen Concentration - - Weight 85 kg (187 lb 6.4 oz) 06/18/2025 11:11 AM EDT Height 168.9 cm (5' 6.5 ) 05/12/2023 8:24 AM EDT Body Mass Index 29.79 05/12/2023 8:24 AM EDT Plan of Treatment Upcoming Encounters Date Type Department Care Team (Late st Contact Info) Description 09/11/2025 10:45 AM EST Office Visit [facility] [address] [phone] Donald Whitlock MD [address] [phone] Health Maintenance Due Date Last Done Comments Diabetes: Ophthalmology Exam 11/24/2020 Diabetes: Pedal Pulse Checked 11/24/2020 Diabetes: Sensory Foot Exam 11/24/2020 Diabetes: Visual Foot Exam 11/24/2020 Colonoscopy (Post-Transplant Patient) 02/10/2021 Pneumococcal Vaccine: 50+ Years (3 of 3 - PCV) 11/05/2023 11/05/2022, 02/05/2012, 09/03/2011, Additional history exists Influenza Vaccine (#1) 2025 3, 11/05/2022, 11/05/2022, Additional history exists Diabetes: Hemoglobin A1C 09/18/2025 025, 11/17/2023, 01/13/2023, Additional history exists Hepatitis B Vaccine Aged Out 12/28/2008 No longe r eligible based on patient's age to complete this topic Pneumococcal Vaccine: Peds (0 to 5 Years) and At-Risk Patients (6 to 49 Years) Discontinued 11/05/2022, 02/05/2012, 09/03/2011, Additional history exists Procedures Procedure Name Priority Date/Time Associated Diagnosis Comments CBC AND DIFFERENTIAL Routine 06/18/2025 8:37 AM EDT Kidney replaced by transplant LIPID PANEL Routine 06/18/2025 8:37 AM EDT Kidney replaced by transplant HEMOGLOBIN A1C Routine 06/18/2025 8:37 AM EDT Kidney replaced by transplant PROTEIN / CREATININE RATIO, URINE Routine 06/18/2025 8:37 AM EDT Kidney replaced by transplant URINE ALBUMIN / CREATININE RATIO Routine 06/18/2025 8:37 AM EDT Kidney replaced by transplant URINALYSIS WITH MICROSCOPIC Routine 06/18/2025 8:37 AM EDT Kidney replaced by transplant RENAL FUNCTION PANEL Routine 06/18/2025 8:37 AM EDT Kidney replaced by transplant MICROSCOPIC EXAMINATION - DO NOT USE Routine 06/18/2025 8:37 AM EDT from Last 3 Months Results * Microscopic Examination (06/18/2025 8:37 AM EDT) WBC, Urine None seen 0 - 5 /hpf [facility] RBC, Urine None seen 0 - 2 /hpf [facility] Squamous Epithelial, Urine None seen 0 - 10 /hpf [facility] Casts None seen None seen /lpf [facility] Bacteria, Urine None seen None seen/Few [facility] 06/18/2025 8:37 AM EDT 06/18/2025 Donald Whitlock MD LAB MICROBIOLOGY - GENERAL OR DERABLES Final Result Performing Organization Address [facility]/ZIP Co de Phone Number [facility] [address] [place] [address] * (ABNORMAL) Protein, Total, Random Urine w/Creatinine (Protein/Creat Ratio) (06/18/2025 8:37 AM EDT) Creatinine, Ur 83.1 Not Estab. mg/dL [facility] Protein, Ur 19.8 Not Estab. mg/dL [facility] Urine Protein/Creati nine Ratio 238(H) 0 - 200 mg/g creat [facility] Urine specimen (specimen) Urine specimen obtained by clean catch procedure / Unknown 06/18/2025 8:37 AM EDT 06/18/2025 Donald Whitlock MD LAB URINE ORDERABLES Final Re sult Performing Organization Address [facility] Co de Phone Number [facility] [address] [place] [address] * (ABNORMAL) Urine Albumin / Creatinine Ratio (06/18/2025 8:37 AM EDT) Albumin, Urine 62.7 Not Estab. ug/mL [facility] Albumin/Creatin ine Ratio 75(H) 0 - 29 mg/g creat [facility] Comment: Normal: 0 - 29 Moderately increased: 30 - 300 Severely increased: >300 Urine specimen (specimen) Urine specimen obtained by clean catch procedure / Unknown 06/18/2025 8:37 AM EDT 06/18/2025 Donald Whitlock MD LAB URINE ORDERABLES Final Re sult Performing Organization Address City/[facility]/ZIP Co de Phone Number [email or web address] [address] [place] [address] * (ABNORMAL) Urinalysis with microscopic (06/18/2025 8:37 AM EDT) Pathologist [facility] Specific [place], Urine 1.020 1.005 - 1.030 [facility] pH Urine 6.0 5.0 - 7.5 [facility] Color, Urine Yellow Yellow [facility] Appearance Urine Clear Clear [facility] [phone] WBC Esterase Urine Negative Negative [facility] Protein, Ur Trace Negative/Tra ce [facility] Glucose, Ur 3+(A) Negative [facility] Ketones, Urine Negative Negative [facility] Blood Urine Negative Negative [facility] Bilirubin Urine Negative Negative [facility] [phone] Urobilinogen Urine 0.2 0.2 - 1.0 mg/dL [facility] Nitrite, Urine Negative Negative [facility] Microscopic Examination Comment [facility] Comment:Microscopic follows if indicated. Other Microsc. Observations See below: [facility] [phone] Comment:Microscopic was maría elena cated and was performed. Urine specimen (specimen) Urine specimen obtained by clean catch procedure / Unknown 06/18/2025 8:37 AM EDT 06/18/2025 us Donald Whitlock MD LAB URINE ORDERABLES Final Re sult [facility] [address] [place] [phone] * CBC and differential (06/18/2025 8:37 AM EDT) WBC 5.5 3.4 - 10.8 x10E3/uL [facility] RBC 4.22 4.14 - 5.80 x10E6/uL [facility] Hemoglobin 13.1 13.0 - 17.7 g/dL [facility] Hematocrit 39.3 37.5 - 51.0 % [facility] MCV 93 79 - 97 fL [facility] MCH 31.0 26.6 - 33.0 pg [facility] MCHC 33.3 31.5 - 35.7 g/dL [facility] RDW 14.0 11.6 - 15.4 % [facility] Platelets 192 150 - 450 x10E3/uL [facility] Neutrophils Relative 71 Not Estab. % [facility] Lymphocytes Relative 17 Not Estab. % [facility] Monocytes 9 Not Estab. % [facility] Eosinophils Relative 2 Not Estab. % [facility] Basophils Relative 1 Not Estab. % [facility] Neutrophils Absolute 3.9 1.4 - 7.0 x10E3/uL [facility] Lymphocytes Absolute 1.0 0.7 - 3.1 x10E3/uL [facility] Monocytes Absolute 0.5 0.1 - 0.9 x10E3/uL [facility] Eosinophils Absolute 0.1 0.0 - 0.4 x10E3/uL [facility] Basophils Absolute 0.0 0.0 - 0.2 x10E3/uL [facility] Immature Granulocytes 0 Not Estab. % [facility] Immature Grans (Absolute) 0.0 0.0 - 0.1 x10E3/uL [facility] Blood specimen (specimen) Venous blood / Unknown 06/18/2025 8:37 AM EDT 06/18/2025 Donald Whitlock MD LAB BLOOD ORDERABLES Final Re sult Performing Organization Address City/[facility] Co de Phone Number [facility] [address] [place] [address] * (ABNORMAL) Hemoglobin A1c (06/18/2025 8:37 AM EDT) Hemoglobin A1C 7.6(H) 4.8 - 5.6 % [facility] Comment: Prediabetes: 5.7 - 6.4 Diabetes: >6.4 Glycemic control for adults with diabetes: <7.0 Blood specimen (specimen) Venous blood / Unknown 06/18/2025 8:37 AM EDT 06/18/2025 Donald Whitlock MD LAB BLOOD ORDERABLES Final Re sult Performing Organization Address [facility] de Phone Number [facility] [address] [place] [address] * (ABNORMAL) Renal Function Panel (06/18/2025 8:37 AM EDT) Glucose 198(H) 70 - 99 mg/dL [facility] BUN 33(H) 8 - 27 mg/dL [facility] Creatinine 1.57(H) 0.76 - 1.27 mg/dL [facility] eGFR CKD-EPI CR 2020 50(L) >59 mL/min/1.7 3 [facility] BUN/Creatinine Ratio 21 10 - 24 [facility] Sodium 140 134 - 144 mmol/L [facility] Potassium 4.3 3.5 - 5.2 mmol/L [facility] Chloride 103 96 - 106 mmol/L [facility] Bicarbonate (CO2) 20 20 - 29 mmol/L [facility] Calcium 9.7 8.6 - 10.2 mg/dL [facility] Albumin 4.2 3.8 - 4.9 g/dL [facility] Phosphorus 3.4 2.8 - 4.1 mg/dL [facility] Blood specimen (specimen) Venous blood / Unknown 06/18/2025 8:37 AM EDT 06/18/2025 Donald Whitlock MD LAB BLOOD ORDERABLES Final Re sult [facility] [address] [place] [address] * (ABNORMAL) Lipid panel (06/18/2025 8:37 AM EDT) Cholesterol 177 100 - 199 mg/dL [facility] Triglycerides 147 0 - 149 mg/dL [facility] HDL 40 >39 mg/dL [facility] VLDL Cholesterol Robert 26 5 - 40 mg/dL [facility] LDL Calculated 111(H) 0 - 99 mg/dL [facility] Blood specimen (specimen) Venous blood / Unknown 06/18/2025 8:37 AM EDT 06/18/2025 Donald Whitlock MD LAB BLOOD ORDERABLES Final [facility] [address] [place] [address] from Last 3 Months Insurance [facility] ([id number]) [facility] ([id number]) Care Teams Stores Clerk Relationship Specialty Start Date End Date Walt Shah MD [facility] ARIAN LANDA [place] PCP - General 11/04/20
--- OUTSIDE RECORDS SUMMARY | 2025-08-29 22:31 | XMS_ITS | Encounter Summary ---
Author Organization [facility] Address [address] [place] [address] Phone Care Team Providers Care Radiation Oncology Manager Name Role Phone Walt Shah MD Primary Care Provider [phone] Reason for Visit * Reason Comments Med Refill Encounter Details Date Type Department Care Team (Late Contact Info) Description 08/22/2024 Refill [facility] [address] [place] [phone] Edmund Gaona MD Social History Tobacco Use Types Packs/Day Years [...] Encounters Date Type Department Care Team (Late Contact Info) Description 09/11/2025 10:45 AM EST Office Visit [facility] [address] [facility] [address] [place] [address] Donald Whitlcok MD [address] [facility] [address] [place] [address] documented as of this encounter Visit Diagnoses Not on filedocumented in this encounter Care Teams Radiation Oncology Manager Relationship Specialty Start Date End Date Walt Shah MD [address] [place] PCP - General 11/04/20 documented as of this encounter
--- OUTSIDE RECORDS SUMMARY | 2025-08-29 22:31 | XMS_ITS | Encounter Summary ---
Author Organization [facility] Address [address] [address] Phone Care Team Providers Care Zipper Ironer Name Role Phone Walt Shah MD Primary Care Provider [phone] Reason for Visit * Reason Onset Date Comments Med Refill 08/24/2025 Encounter Details Date Type Department Care Team (Late st Contact Info) Description 08/24/2025 Refill [facility] [address] [phone] Melanie Clemens [address] [phone] Social History Tobacco Use Types Packs/Day Years [...] EST Office Visit [facility] [address] [phone] Donald Whitlock MD [address] [phone] documented as of this encounter Visit Diagnoses Not on filedocumented in this encounter Care Teams Zipper Ironer Relationship Specialty Start Date End Date Walt Shah MD [address] [place] PCP - General 11/04/20 documented as of this encounter
--- OUTSIDE RECORDS SUMMARY | 2025-08-29 22:31 | XMS_ITS | Clinical Summary ---
Author Organization [facility] Address [address] [place] [address] Care Team Providers Care Shearer Helper Name Role Phone Pablo REHMAN MD, Walt Addison Primary Care Provider [phone] Allergies Active Allergy Reactions Criticality Noted Date Comments Cinacalcet Hives 04/09/2021 Medications Medication Sig Dispensed Refills Start Date End Date Status amLODIPine (NORVASC) tablet 2.5 mg Take 2.5 mg by mouth daily. 0 Active atorvastatin (LIPITOR) tablet 40 mg Take 40 mg by mouth daily. 0 Active buPROPion (WELLBUTRIN) 100 MG tablet Take 100 mg by mouth daily. 0 Active buPROPion (Wellbutrin SR) 100 MG 12 hr tablet Take 100 mg by mouth 2 (two) times a day. 0 Active docusate sodium (COLACE) 100 MG capsule Take 100 mg by mouth 2 (two) times a day. 0 Active gabapentin (NEURONTIN) 100 MG capsule Take 100 mg by mouth 3 (three) times a day. 0 Active lisinopril (PRINIVIL,ZESTRIL) tablet 5 mg Take 5 mg by mouth daily. 0 Active sertraline (ZOLOFT) 100 MG tablet Take 100 mg by mouth daily. 0 Active silodosin (RAPAFLO) 8 MG CAPS capsule Take 8 mg by mouth every night at bedtime. 0 Active terazosin (HYTRIN) 1 MG capsule Take 1 mg by mouth every night at bedtime. 0 Active Cholecalciferol (Vitamin D) 25 MCG (1000 UT) TABS Take by mouth. 0 Active tacrolimus (PROGRAF) 1 MG capsule Take 2 mg by mouth daily. 0 Active Active Problems Problem Noted Date Diagnosed Date Acute renal failure (ARF) 04/09/2021 Orthostatic hypotension 04/09/2021 RADHA (acute kidney injury) 04/09/2021 Social History Tobacco Use Types Packs/Day Years Used Date Smoking Tobacco: Never Smokeless Tobacco: Never Sex and Gender Information Value Date Recorded Sex Assigned at Male 04/09/2021 9:16 AM EDT Gender Identity Not on file Sexual Orientation Not on file Job Start Date Occupation Industry Not on file Not on file Not on file Last Filed Vital Signs Vital Sign Reading Time Taken Comments Blood Pressure 157/79 04/11/2021 7:22 AM EDT Pulse 54 04/11/2021 7:22 AM EDT Temperature 36.7 C (98 F) 04/11/2021 7:22 AM EDT Respiratory Rate 16 04/11/2021 7:22 AM EDT Oxygen Saturation 97% 04/11/2021 7:22 AM EDT Inhaled Oxygen Concentration - - Weight 74.1 kg (163 lb 6.4 oz) 04/10/2021 9:00 A M EDT Height 167.6 cm (5' 6 ) 04/09/2021 8:46 AM EDT Body Mass Index 26.37 04/09/2021 8:46 AM EDT Plan of Treatment Health Maintenance Due Date Last Done Comments Hepatitis C Screening 1964 COVID-19 Vaccine (#1) 1969 Pneumococcal Vaccine (1 of 2 - PCV) 1970 Depression Screening 1976 BMI Counseling 1982 Diabetes: Eye Exam (No Retinopathy) 1982 Diabetes: Foot Exam 1982 Diabetes: Microalbumin Test 1982 Preventative Health Evaluation 1982 DTap / Tdap / Td (1 - Tdap) 1983 Shingrix-Zoster Vaccine (1 of 2) 1983 Colon Cancer Screening (Colonoscopy) 2009 Hemoglobin A1C Due 10/09/2021 04/09/2021 RSV Adult > 60+ Yrs or (1 - Risk 60-74 years 1-dose series) 2024 Influenza Vaccine (#1) 2025 8, 08/27/2016, 07/27/2012, Additional history exists Hepatitis B Vaccines Aged Out No long er eligible based on patient's age to complete this topic RSV Ped < 20 months Aged Out No longe r eligible based on patient's age to complete this topic Advance Directives For more information, please contact: [phone] Documents on File Type Date Recorded Patient [employer] Expl anation Advance Directive and Living Will 04/14/2021 2:23 PM KARLA. Health Care Prox y Latest Code Status on File Code Status Date Activated Date Inactivated Comments Full Code 04/09/2021 11:55 AM 04/11/2021 10:27 PM Thi s code status was ascertained in the following way: discussion with patient . Care Teams Shearer Helper Relationship Specialty Start Date End Date Walt Shah II, MD [address] [place] [address] PCP - General Internal Medicine 04/09/21
[2025-08-29 23:02] LABS: NRBC Abs Auto 0.000 X10*3/uL (0.0-0.012); NRBC Pct Auto 0.0 /100WBC (0.0-0.2); PLT CLUMP 1; SCAN SMEAR FLAG 1
[2025-08-29 23:04] LABS: Hematocrit 36.6 % (42.0-52.0); Hemoglobin 12.3 g/dl (14.0-18.0); Imm Gran Abs Auto 0.01 X10*3/uL (0.00-0.03); Imm Gran Pct Auto 0.2 % (0.0-0.4); Lymphocytes Absolute Auto 1.1 X10*3/uL (1.2-4.9); MANUAL DIFF FLAG SCAN; Mean Corpuscular HGB Conc 33.6 g/dl (31.0-36.0); Mean Corpuscular Hemoglobin 30.6 pg (27.0-33.0); Mean Corpuscular Volume 91.0 fL (80.0-98.0); Red Blood Count 4.02 X10*6/uL (4.60-5.80)
[2025-08-29 23:19] LABS: Alanine Aminotransferase 43 U/L (0-40); Albumin Level 4.0 g/dL (3.5-5.0); Alkaline Phosphatase 103 U/L (39-117); Anion Gap 13 (12-20); Aspartate Amino Transferase 27 U/L (5-37); Blood Urea Nitrogen 28 mg/dL (9-16); Calcium 8.9 mg/dL (8.4-10.2); Carbon Dioxide 24 mmol/L (22-29); Chloride 109 mmol/L (96-108); Creatinine Clr Calc Pharmacy 52.2; Estimated Glomerular Filt Rate 46; Magnesium 1.8 mg/dL (1.6-2.6); Potassium 3.7 mmol/L (3.3-5.1); Sodium 142 mmol/L (135-145); Total Protein 6.4 g/dL (6.5-8.0)
[2025-08-29 23:20] LABS: COVID-19 Test Negative (Negative); IDNOW Serial# 55D5AD1C
[2025-08-29 23:23] LABS: IDNOW Serial# 58CA691E; Influenza B2 Negative (Negative)
[2025-08-29 23:27] LABS: Troponin-I High Sensitivity 3.7 ng/L (<3.5-35.0)
[2025-08-29 23:30] LABS: Platelet Count 156 X10*3/uL (160-400); White Blood Count 6.2 X10*3/uL (4.8-10.8)
[2025-08-30 00:19] VITALS: BP 144/73; PULSE 63; RESP 14; O2SAT 96
--- NOTE | 2025-08-30 01:41 | ED_ITS ---
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 Patient reports that he woke up about 30 minutes prior to arrival with left- sided chest pain that was constant. The pain was initially 8/10. He was given aspirin 324 mg and 1 dose of sublingual nitroglycerin. This improved the patient's pain any currently has a 2/10 pain. He denies any history of coronary artery disease. He reports that he had some mild shortness of breath for a few minutes in his has resolved. Denies any cough, fevers, chills Denies any leg swelling. He has no other complaints or concerns at this time Related Data Allergies Allergy/AdvReac Type Severity Reaction Status Date / Time cinacalcet (From SENSIPAR) Allergy Unknown SICK Verified 08/29/25 22:20 iodine (IODINE) Allergy Unknown HIVES Verified 08/29/25 22:20 Review of Systems 2 Constitutional: Constitutional: Denies body ache(s), Denies chills, Denies fever(s) and Denies headache(s) Eyes: Eyes: Denies blurry vision ENT: Denies vertigo, Denies dizziness and Denies headache(s) Cardiovascular: Cardiovascular: Reports chest pain, Reports chest pain at rest, Denies chest pain with activity, Reports dyspnea and Denies dyspnea on exertion Respiratory: Respiratory: Denies cough, Reports dyspnea and Denies dyspnea on exertion Gastrointestinal: Gastrointestinal: Denies abdominal pain, Denies nausea and Denies vomiting Musculoskeletal: Musculoskeletal: Denies back pain Neurologic: Denies vertigo, Denies dizziness and Denies headache(s) [facility] Social History Social History Smoked in Last 30 Days: No Use of substances other than those prescribed or required for medical reasons: No Advance Directives: No Advance Directives Information Provided: No Do you have a plan to hurt others: No Plan Physical Exam 2 Vital Signs: Vital Signs: Last Vital Signs Temp 98.2 F 08/29/25 22:18 Pulse 63 08/30/25 00:19 Resp 14 08/30/25 00:19 BP 144/73 H 08/30/25 00:19 Pulse Ox 96 08/30/25 00:19 O2 Del Method Room Air 08/30/25 00:19 BMI result Body Mass Index 30.3 Const: General: healthy appearing, comfortable, no acute distress, alert and awake Nutritional Appearance: well nourished Orientation/consciousness: p atient oriented x3 HEENT: Head: Yes normocephalic and Yes atraumatic Throat: Yes posterior oropharynx normal Eyes: Eyelids: Yes eyelids normal Conjunctivae: conjunctivae normal S clerae: sclerae normal Corneas: corneas normal Pupils: Equal, round and reactive pupils present EOM: EOMs intact bilaterally Neck: Neck: Yes full ROM Chest: Chest palpation & inspection: normal inspection of the chest, no crepitus and tenderness (Tenderness to the left lower anterior chest wall to the mid sternum) Resp: Effort & Inspection: normal respiratory effort, able to speak in complete sentences, no audible wheezes and not labored Auscultation: clear to auscultation bilaterally Cardio: Rate: regular rate Rhythm: regular rhythm GI: Inspection: No distended Palpation (GI): Soft to palpation, not firm, nontender, no guarding and not rigid Skin: General skin exam: elasticity normal Neuro: General: patient oriented x3 Cranial nerves: Yes CN's II-XII intact bilaterally, Yes Equal, round and reactive pupils present and Yes Bilaterally intact EOM present Cognition (Neuro): normal cognition Medical Decision Making Medical Decision Making MDM Narrative: 59-year-old male presents for evaluation of chest pain that woke him up from sleep. He denies any history of coronary artery disease but does have a history of renal transplant and diabetes. His EKG is nonischemic. He is reassuring that his chest pain is reproducible, his vital signs are stable. He has no history of coronary artery disease. The patient has no leukocytosis or infectious symptoms. He has no significant anemia. He does have chronic kidney disease which is reflected with his elevated BUN and creatinine but consistent with a baseline. He does have a history of known diabetes in his glucose of 226 but no evidence of DKA. His troponin was initially 3.7, a repeat troponin 3.5 hours later was 3.5, both within normal limits, he rules out for ACS. Given his age and history of diabetes I think he would benefit from a referral to Radiology for outpatient workup. Return precautions were given Differential Diagnosis Differential Diagnoses: The differential diagnosis associated with the presentation includes Atypical chest pain ACS Costochondritis Anxiety GERD Chest wall pain Admission/Observation Consideration of admission/observation: Escalation of care including admission/observation considered The patient was considered for admission but ultimately rules out for ACS, remains hemodynamically stable Lab Data MDM Lab Attestation statement: I reviewed the patient's lab results. As above 08/29/25 22:52 08/29/25 22:52 Labs: Lab Results 08/29/25 Range/Units 22:52 WBC 6.2 (4.8-10.8) X10*3/uL RBC 4.02 L (4.60-5.80) X10*6/uL Hgb 12.3 L (14.0-18.0) g/dl Hct 36.6 L (42.0-52.0) % MCV 91.0 (80.0-98.0) fL MCH 30.6 (27.0-33.0) pg MCHC 33.6 (31.0-36.0) g/dl RDW 12.6 (11.0-16.0) % Plt Count 156 L (160-400) X10*3/uL MPV 12.0 (9.4-12.4) fL Immature Gran % (Auto) 0.2 (0.0-0.4) % Neut % (Auto) 71.5 (45-73) % Lymph % (Auto) 17.5 L (20-40) % Pickett % (Auto) 8.2 (2-11) % Eos % (Auto) 1.8 (0-4) % Baso % (Auto) 0.8 (0-2) % Lymph # (Auto) 1.1 L (1.2-4.9) X10*3/uL Pickett # (Auto) 0.5 (0.1-1.2) X10*3/uL Eos # (Auto) 0.1 (0.0-0.4) X10*3/uL Baso # (Auto) 0.1 (0.0-0.2) X10*3/uL Abs Immat Gran (auto) 0.01 (0.00-0.03) X10*3/uL Absolute Neuts (auto) 4.5 (2.0-8.3) x10*3/uL Absolute Nucleated RBC 0.000 (0.0-0.012) X10*3/uL Nucleated RBC % (auto) 0.0 (0.0-0.2) /100WBC Smear Tech's Comments VERIFIED Sodium 142 (135-145) mmol/L Potassium 3.7 (3.3-5.1) mmol/L Chloride 109 H (96-108) mmol/L Carbon Dioxide 24 (22-29) mmol/L Anion Gap 13 (12-20) BUN 28 H (9-16) mg/dL Creatinine 1.54 H (0.5-1.4) mg/dL Estim Creat Clear Calc 52.2 Estimated GFR 46 Random Glucose 226 H (60-115) mg/dL Calcium 8.9 (8.4-10.2) mg/dL Magnesium 1.8 (1.6-2.6) mg/dL Total Bilirubin 0.6 (0.0-1.0) mg/dL AST 27 (5-37) U/L ALT 43 H (0-40) U/L Alkaline Phosphatase 103 (39-117) U/L Troponin I High Sens 3.7 (<3.5-35.0) ng/L Total Protein 6.4 L (6.5-8.0) g/dL Albumin 4.0 (3.5-5.0) g/dL COVID-19 (CHANELLE) Negative (Negative) COVID-19 Clin Com See Note Influenza Type A (MILLY) Negative (Negative) Influenza Type B (MILLY) Negative (Negative) Influenza A & B Note See Note Independent Interpretation I performed an independent interpretation of an: EKG Interpretation: Sinus rhythm with a rate of [address] segment changes Discharge Plan Discharge Clinical Impression: Atypical chest pain Patient Disposition: Home, Self-Care Instructions: Chest Pain (ED), Chest Wall Pain (ED) Additional Instructions: Your workup in the ER today was reassuring. This includes your blood work, EKG and exam. Given your age and history of diabetes I recommend that you follow up with Cardiology for further evaluation as an outpatient. You might benefit from an echocardiogram and/or stress test. Return for new or worsening symptoms Referrals: [facility] [place] [facility] [Provider Group] Referral Note: chest pain Print Language: Estonian
[2025-08-30 01:44] LABS: Troponin-I High Sensitivity 3.5 ng/L (<3.5-35.0)
[2025-08-30 02:10] VITALS: BP 141/70; PULSE 64; RESP 16; TEMP -17.7; TEMP 0; O2SAT 96
== END 2025-08-30 02:11 | disposition home or self-care (01) ==
PROVIDERS: Physician Assistant; Emergency Provider Emergency Medicine
DX: R07.9 Chest pain, unspecified (principal); R06.02 Shortness of breath; Z03.818 Encounter for observation for suspected exposure to other biological agents ruled out; E11.9 Type 2 diabetes mellitus without complications; Z94.0 Kidney transplant status
CPT/HCPCS: 36415; 80053; 83735; 84484; 85025; 87502; 87635; 93005; 99283; 99285

== ENCOUNTER → 2025-08-29 22:17 | Outpatient (BNV) | payer OTHER, SELFPAY | PROVIDERS: Emergency Provider Emergency Medicine; Visit Provider Internal Medicine Cardiovascular Disease | DX: R07.9 Chest pain, unspecified (principal) | CPT/HCPCS: 93010 ==